=== PATIENT | female | born 1960 | race Caucasian/White ===

== ENCOUNTER 2017-06-16 11:39 | Emergency (ER) | payer BC ==
--- NOTE | 2017-06-16 13:45 | EDM.PDOC ---
ED HPI GENERAL MEDICAL PROBLEM - General Chief Complaint: Upper Extremity Injury/Pain Stated Complaint: [id number] FISH HOOK IN HAND Time Seen by Provider: 06/16/17 13:35 Source of Information: Reports: Patient - History of Present Illness INITIAL COMMENTS - FREE TEXT/NARRATIVE: 56 yo female presents with fish hook to right hand dorsal surface. Onset: Today Location: Reports: Upper Extremity, Right Quality: Reports: Ache Severity: Mild Right Hand Pain Score (Numeric/FACES): 4 - Related Data Allergies Allergy/AdvReac Type Severity Reaction Status Date / Time No Known Allergies Allergy Verified 06/16/17 12:04 Home Meds: Home Meds . [No Known Home Meds] 06/16/17 [History] Past Medical History - Past Surgical History HEENT Surgical History: Reports: Tonsillectomy Female Surgical History: Reports: Section Social & Family History - Tobacco Use Smoking Status *Q: Never Smoker - Caffeine Use Caffeine Use: Reports: Coffee, Soda - Recreational Drug Use Recreational Drug Use: No Review of Systems - Review of Systems Review Of Systems: ROS reveals no pertinent complaints other than HPI. ED EXAM, GENERAL - Physical Exam Exam: See Below Exam Limited By: No Limitations General Appearance: Alert, WD/WN, No Apparent Distress Respiratory/Chest: No Respiratory Distress Cardiovascular: Normal Peripheral Pulses Extremities: Normal Range of Motion, Normal Capillary Refill Neurological: Alert, Oriented Skin Exam: Warm, Dry, Normal Color, No Rash, Wound/Incision (fish hook right mcp ) ED TRAUMA EXTREMITY PROCEDURES - Laceration/Wound Repair Right Anterior Distal Hand Lac/Wound Length In cm: 0.3 Appearance: Superficial Anesthetic Type: Local Local Anesthesia - Lidocaine (Xylocaine): 1% Plain Local Anesthetic Volume: 1cc Skin Prep: Chlorhexidine (Hibiciens), Providone-Iodine (Betadine) Saline Irrigation (cc's): 40 Closed With: Dermabond Drain Placement: No Sterile Dressing Applied: Provider Tetanus Status Addressed: Yes Complications: No - Foreign Body Removal Indication:: Fish hook in hand Consent Obtained: Patient Performing Doctor:: Jesus Farley Foreign Body Other Location Comment:: right hand over MCP Anesthesia Type: Local Findings:: Fish hook removed Complications:: No Comments:: Difficult removal of 3 pronged fish hook. pt tolerated well. Course - Vital Signs Last Recorded V/S: Last Vital Signs Temp 97.0 F 06/16/17 13:48 Pulse 54 L 06/16/17 13:48 Resp 18 06/16/17 13:48 BP 141/68 H 06/16/17 13:48 Pulse Ox 100 06/16/17 13:48 - Orders/Labs/Meds Orders: Active Orders 24 hr Category Date Time Status Vaccines to be Administered [RC] PER UNIT ROUTINE Care 06/16/17 13:52 Active Cephalexin [Keflex] Med 06/16/17 14:45 Once 500 mg PO ONETIME ONE Medication Orders Cephalexin (Keflex) 500 mg PO ONETIME ONE Stop: 06/16/17 14:46 Meds: Medications Generic Name Dose Route Start Last Admin Trade Name Freq PRN Reason Stop Dose Admin Cephalexin 500 mg 06/16/17 14:45 Keflex PO 06/16/17 14:46 ONETIME ONE Discontinued Medications Generic Name Dose Route Start Last Admin Trade Name Freq PRN Reason Stop Dose Admin Diphtheria/Tetanus/Acell Pertussis 0.5 ml 06/16/17 13:52 06/16/17 14:07 Adacel IM 06/16/17 13:53 0.5 ml .ONCE ONE Administration Lidocaine HCl 30 ml 06/16/17 13:52 06/16/17 14:07 Xylocaine-Mpf 1% INJECT 06/16/17 13:53 30 ml ONETIME ONE Administration - Radiology Interpretation Free Text/Narrative:: No intrarticular foreign body per radiology. Departure - Departure Time of Disposition: 14:49 Disposition: Home, Self-Care 01 Condition: Good Clinical Impression: Foreign body of hand, right, superficial Qualifiers: Encounter type: initial encounter Qualified Code(s): S60.551A - Superficial foreign body of right hand, initial encounter - Discharge Information Instructions: Laceration Care, Adult, Stitches, Abby, or Adhesive Wound Closure, [id number] Forms: ED Department Discharge Additional Instructions: Take antibiotic as directed. Take over the counter Ibuprofen for pain. Follwo up in 1 week with your PCP for re-evaluation. - My Orders Last 24 Hours: My Active Orders 06/16/17 13:52 Vaccines to be Administered [RC] PER UNIT ROUTINE 06/16/17 14:45 Cephalexin [Keflex] 500 mg PO ONETIME ONE - Assessment/Plan Last 24 Hours: My Active Orders 06/16/17 13:52 Vaccines to be Administered [RC] PER UNIT ROUTINE 06/16/17 14:45 Cephalexin [Keflex] 500 mg PO ONETIME ONE
[2017-06-16 13:49] VITALS: BP 141/68
[2017-06-16] MEDS ORDERED: Lidocaine 1% 30 ML SDV INJECT ONE (13:52)
[2017-06-16] MEDS ORDERED: Diphtheria,Pertussis(Acell),Tetanus Vaccine 0.5 ML SDV IM ONE (13:52)
[2017-06-16] MEDS ORDERED: Cephalexin 500 MG Cap PO ONE (14:45)
== END 2017-06-16 15:02 | disposition home or self-care (01) ==
LOC: DL.ED 11:39
DX: S60.551A Superficial foreign body of right hand, initial encounter (principal); Z98.890 Other specified postprocedural states; W45.8XXA Other foreign body or object entering through skin, initial encounter
CPT/HCPCS: 12001; 73120; 90715; 99283; A9270